=== PATIENT | male | born 1970 | race Caucasian/White ===

== ENCOUNTER 2025-05-02 10:48 | Emergency (ER) | payer OTHER, SELFPAY ==
--- NOTE | 2025-05-02 10:50 | ED.ABDPAIN ---
HPI - Abdominal Pain General Stated Complaint: Abdominal Pain Time Seen by Provider: 05/02/25 11:12 Source: patient and RN notes reviewed Mode of arrival: ambulatory Limitations: no limitations History of Present Illness HPI narrative: 55-year-old male presents with concern for left lower quadrant abdominal pain. He reports he has had pain for 1 week mainly in the left lower quadrant that has been getting worse over the past week. Reports yesterday when he was mowing the grass the bouncing of the lawn more caused his abdomen to hurt. He reports he had loose stool, then was constipated for a day and then had loose stool again after taking Dulcolax. He denies nausea or vomiting. He reports he had a fever yesterday. MD elicited complaint: abdominal pain Related Data Allergies Allergy/AdvReac Type Severity Reaction Status Date / Time Penicillins Allergy Severe HIVES Verified 05/02/25 10:57 Review of Systems Review of Systems: CONSTITUTIONAL: Denies malaise, chills, sweats. Reports tactile fever. ENT: Denies rhinorrhea, congestion, sinus pain, otalgia or sore throat. CARDIOVASCULAR: Denies chest pain, palpitations, or edema. RESPIRATORY: Denies cough or dyspnea. GASTROINTESTINAL: Reports left lower quadrant abdominal pain, loose stools. Denies nausea, vomiting, bloody, or mucous stools. GENITOURINARY: Denies dysuria or hematuria. MUSCULOSKELETAL: Denies myalgia. NEUROLOGIC: Denies headache. All systems reviewed & are unremarkable except as noted in HPI and below PMFSH Surgical History Surgical History History of shoulder surgery (2008) Right rotator cuff repair Family History Family History (Updated 03/10/24 @ 16:00 by Georgette Willson APRN) Mother Kidney disease Father Heart disease Sibling Pancreatic cancer Social History Social History Smoking status: Never smoker Alcohol intake: never Substance use: never Comments At time of signature, agree with nursing past medical, surgical, social and family history. There is no relevant family history pertinent to the presenting complaint Exam Narrative: GENERAL: Well-appearing, well-nourished, and in no acute distress. HEAD: Normocephalic, atraumatic. EYES: PERRLA, conjunctivae clear, and EOMI. ENT: Nares clear. Mucous membranes moist. NECK: Supple. No lymphadenopathy CHEST: Speaks in full sentences. No respiratory distress. HEART: Regular rate and rhythm. ABDOMEN: Soft, flat, nondistended. Left lower quadrant tenderness. No guarding, rebound tenderness, or rigidity. No pulsatile masses. Bowel sounds hypoactive in all four quadrants. No organomegaly. Negative Alfonso?s sign. No periumbilical tenderness. No Supra public tenderness or distension. SKIN: Warm, dry, no rash. NEURO: Alert and oriented x3. PSYCH: Normal mood and affect Course Course Emergency Course: Patient is aware of, understands and agrees to be transferred to the emergency department. Patient agrees to proceed directly to the emergency department. Portions of this record may have been created with voice recognition software Level of Care: Express Care Visit Vital Signs Vital signs: Reviewed. Transfer Transfered to: [place] Transportation: Other (Private vehicle) Transfer rationale: Abdominal pain Accepting physician: tuyet MDM - Abdominal Pain [facility] Narrative Medical decision making narrative: Patient is nontoxic appearing and in no acute distress Critical Care Time Critical Care Time Critical Care Time: No Discharge Plan Discharge Clinical Impression: Abdominal pain Patient Disposition: Acute Care Hospital Condition: Stable Patient Language: Ethiopian Prescriptions: No Action atorvastatin 40 mg tablet See Rx Instructions .ROUTE .COMPLEX Qty: 30 3RF Dose Instruction: Take 1 tablet by mouth once daily Rx Instructions: Take 1 tablet by mouth once daily Follow-up/Referrals: Preet Joyce MD [Primary Care Provider] - Stand Alone Forms: Work/School Release IP Time of Disposition: 11:17
[2025-05-02 10:56] VITALS: BP 149/90; PULSE 80; RESP 16; TEMP 36.6; O2SAT 98
== END 2025-05-02 11:23 | disposition short-term general hospital (02) ==
PROVIDERS: Emergency Provider Nurse Practitioner; PCP Family Medicine Adolescent Medicine
DX: R10.32 Left lower quadrant pain (principal)
CPT/HCPCS: 99212; G0463

== ENCOUNTER 2025-05-02 11:39 | Emergency (ER) | payer OTHER, SELFPAY ==
--- NOTE | ~2025-05-02 | CT_ITS ---
EXAMINATION: CT abdomen pelvis w con DATE: 05/02/2025 13:03 INDICATION: Left lower quadrant abdominal pain TECHNIQUE: Computed tomography (CT) of the abdomen and pelvis was performed with 100 mL Omnipaque-350 intravenous contrast. Automated exposure control and iterative reconstruction technique were employe d. The dose-length product was 546.53 mGy-cm. COMPARISON: None FINDINGS: Mild dependent atelectasis in the bilateral lower lobes. Heart size is normal. No pericardial or pleu ral effusion. Small amount prescribed coronary artery calcific lesion. Focal hepatic steatosis along the gallbladder fossa. Gallbladder, spleen, pancreas, right kidney and bilateral adrenal glands are n ormal. Small parapelvic cysts at the left renal hilum. Bladder is normal. Mild scattered diverticulos is with inflammatory stranding surrounding a diverticulum at the distal descending colon consistent w ith diverticulitis. No abscess, extraluminal gas or free intraperitoneal fluid. Changes of the bowels are unremarkable including a normal retrocecal appendix. No pathologically enlarged abdominal or pel steve lymphadenopathy. Mild thoracic spondylosis with chronic appearing anterior wedging, mild at T8, m inimal at T7 and T9. IMPRESSION: 1. Uncomplicated diverticulitis of the distal descending colon. Reviewed, dictated and finalized at location A.
[2025-05-02 11:40] VITALS: BP 145/80; PULSE 73; RESP 18; TEMP 36.6; O2SAT 97
--- OUTSIDE RECORDS SUMMARY | 2025-05-02 11:42 | XMS_ITS | Clinical Summary ---
Author Organization [address] lt Address [address] [place] [address] Care Team Providers Care Retail Salesperson Name Role Phone Preet Joyce MD Primary Care Prov ider Allergies Active Allergy Reactions Criticality Noted Date Comments Penicillins Hives Medium 01/25/2022 Medications atorvastatin (LIPITOR) 40 mg tablet Take 40 mg by mouth daily 2 Active albuterol HFA (ProAir HFA) 90 mcg/actuation inhalerIndicati ons:Wheezing Inhale 2 puffs every 4 (four) hours as needed for wheezing or shortness of breath 8.5 g 2 Active Active Problems No known active problems Surgical History Surgery Date Site/Laterality Comments ROTATOR CUFF REPAIR 10/05/2008 - 10/04/2009 Right Medical History Medical History Date Comments Hyperlipidemia Family History Medical History Relation Name Comments No Known Problems Father No Known Problems Mother Relation Name Status Comments Father Mother Social History Tobacco Use Types Packs/Day Years Used Date Smoking Tobacco: Never Smokeless Tobacco: Never Personal Safety Answer Date Recorded Getting School Help Needed Not on file 12/19 Sex and Gender Information Value Date Recorded Sex Assigned at Not on file 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 Gender Identity Not on file Sexual Orientation Not on file Obstetrics History Last Filed Vital Signs Vital Sign Reading Time Taken Comments Blood Pressure 124/76 01/25/2022 2:19 PM CDT Pulse 59 01/25/2022 2:19 PM CDT Temperature 37.5 C (99.5 F) 01/25/2022 2:19 PM CDT Respiratory Rate 18 01/25/2022 2:19 PM CDT Oxygen Saturation 98% 01/25/2022 2:19 PM CDT Inhaled Oxygen Concentration - - Weight 90.9 kg (200 lb 6.4 oz) 01/25/2022 2:19 P M CDT Height 170.2 cm (5' 7) 01/25/2022 2:19 PM CDT Body Mass Index 31.39 01/25/2022 2:19 PM CDT Plan of Treatment Health Maintenance Due Date Last Done Comments Colon Cancer Screening-Colonoscopy 1968 Depression Screening 1968 Hepatitis C Screening 1968 Prostate Cancer Screening-PSA 1968 DTaP/Tdap/Td Vaccine (1 - Tdap) 1979 Hepatitis B Screening 1986 Regular Well Visit/Exam 18-64 1986 Zoster Vaccine (1 of 2) 2018 Covid-19 Vaccine (3 - 2023-2 5 season) 2024 08/02/2021, 07/12/2021 Influenza Vaccine (#1) 2025 Pneumococcal vaccine <65 Aged Out No longer eligible based on patient's age to complete this topic Insurance [employer] OPEN ACCESS [facility] [id number] Care Teams Retail Salesperson Relationship Specialty Start Date End Date Preet Joyce MD [address] [place] [address] PCP - General 10/02/16
--- OUTSIDE RECORDS SUMMARY | 2025-05-02 11:42 | XMS_ITS | Referral Summary ---
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
[2025-05-02 11:46] VITALS: BP 127/79; PULSE 68; RESP 16; TEMP 36.8; O2SAT 96
[2025-05-02 12:13] LABS: Hematocrit 46.1 % (42.0-52.0); Hemoglobin 15.4 g/dL (14.0-18.0); Immature Granulocyte Percent A 0.3 % (0-0.5); Lymphocytes Absolute Auto 1.52 K/mm3 (0.9-3.2); Mean Corpuscular HGB Conc 33.4 g/dl (32-36); Mean Corpuscular Hemoglobin 31.0 pg (26-34); Mean Corpuscular Volume 92.8 fl (80-100); Nucleated Red Blood Cells Absolute Auto 0.000 K/mm3 (0.0-0.012); Nucleated Red Blood Cells Perc 0.0 % (0.0-0.2); Platelet Count Result 229 k/mm3 (150-375); Red Blood Count 4.97 M/mm3 (4.6-6.20); White Blood Count 7.2 K/mm3 (4.5-10.0)
[2025-05-02 12:19] LABS: Add Urine Microscopic? YES; Appearance Urine Clear (Clear); Glucose Urine UA Negative (Negative); Leukocyte Esterase Ur Negative LEU/UL (Negative); Nitrate Urine Negative (Negative); Non Pathogenic Casts 0-2; Specific Grav Ur 1.021 (1.001-1.035)
--- OUTSIDE RECORDS SUMMARY | 2025-05-02 12:33 | XMS_ITS | Clinical Summary ---
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
--- OUTSIDE RECORDS SUMMARY | 2025-05-02 12:33 | XMS_ITS | Referral Summary ---
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
[2025-05-02 12:40] LABS: Alanine Aminotransferase 14 U/L (6-50); Albumin Level 4.3 g/dL (3.5-5.1); Alkaline Phosphatase 65 U/L (38-126); Anion Gap 5 mmol/L (4-12); Aspartate Amino Transferase 25 U/L (17-59); Bilirubin,Total 1.1 mg/dL (0.2-1.3); Blood Urea Nitrogen 16 mg/dL (9-20); Calcium 9.2 mg/dL (8.4-10.2); Carbon Dioxide 29 mmol/L (22-30); Chloride 103 mmol/L (98-107); Estimated CRCL calculation 58 ml/min; Estimated Glomerular Filt Rate 55; Glucose 101 mg/dL (65-110); Lipase 99 U/L (23-300); Potassium 4.4 mmol/L (3.4-5.0); Sodium 137 mmol/L (137-145); Total Protein 7.8 g/dL (6.3-8.2)
[2025-05-02 13:11] VITALS: BP 145/99; PULSE 70; RESP 16; O2SAT 98
--- NOTE | 2025-05-02 13:32 | ED.GENADULT ---
HPI - General Adult General Chief complaint: Abdominal Pain Stated complaint: abd pain Time Seen by Provider: 05/02/25 12:12 Source: patient Mode of arrival: ambulatory Limitations: no limitations History of Present Illness HPI narrative: 55-year-old with a history of hyperlipidemia here with a complaint of left lower abdominal pain with started yesterday. He states for the past few days his bowel movement is slightly different. Denies any blood in the stool. No history of fever or chills. No previous history of diverticulosis or diverticulitis. Denies urinary symptoms. Return Onset (ago): day(s) (1) Location: abdomen Radiation: non-radiation Severity: mild Quality: aching Pain Consistency: constant Relieving factors: none Exacerbating factors: none Associated symptoms: denies other symptoms Related Data Allergies Allergy/AdvReac Type Severity Reaction Status Date / Time Penicillins Allergy Severe HIVES Verified 05/02/25 11:46 Review of Systems Review of Systems: All systems reviewed & are unremarkable except as noted in HPI and below Constitutional: Constitutional: Reports no additional constitutional complaints Eyes: Eyes: Reports no additional eye complaints ENT: Reports system reviewed and no additional complaints, except as documented Cardiovascular: Cardiovascular: Reports no additional cardiovascular complaints Respiratory: Respiratory: Reports no additional respiratory complaints Gastrointestinal: Gastrointestinal: Reports as per HPI Musculoskeletal: Musculoskeletal: Reports no additional musculoskeletal complaints Neurologic: Reports system reviewed and no additional complaints, except as documented Psychiatric: Psychiatric: Reports no additional psychiatric complaints Endocrine: Endocrine: Reports no additional endocrine complaints PMFSH Surgical History Surgical History History of shoulder surgery (2008) Right rotator cuff repair Family History Family History Mother Kidney disease Father Heart disease Sibling Pancreatic cancer Social History Social History Smoking status: Never smoker Alcohol intake: never Substance use: never Exam Narrative: GENERAL: Well-appearing, well-nourished, and in no acute distress. HEAD: Normocephalic, atraumatic. EYES: PERRLA and EOMI. ENT: Nares clear, no rhinorrhea or epistaxis. Mucous membranes moist. NECK: Supple. CHEST: Clear to auscultation. No respiratory distress. HEART: Regular rate and rhythm. No murmur heard. Normal peripheral pulses. ABDOMEN: Soft, mild tenderness in the LLQ , nondistended, normal active bowel sounds. EXTREMITIES: Normal range of motion. No edema. SKIN: Warm, dry, no rash. NEURO: No focal deficits. Alert and oriented x3. PSYCH: Normal mood and affect. Course Course Emergency Course: Informed patient about his lab work, CT findings. Advised to take antibiotic as prescribed ER liquid diet for few days advance as tolerated. Also recommended him to follow with his primary doctor Vital Signs Vital signs: Vital Signs Temperature 36.6 C 05/02/25 11:40 Pulse Rate 73 05/02/25 11:40 Respiratory Rate 18 05/02/25 11:40 Blood Pressure 145/80 H 05/02/25 11:40 Pulse Oximetry 97 05/02/25 11:40 Oxygen Delivery Room Air 05/02/25 11:40 Temperature 36.8 C 05/02/25 11:46 Pulse Rate 70 05/02/25 13:11 Respiratory Rate 16 05/02/25 13:11 Blood Pressure 145/99 H 05/02/25 13:11 Pulse Oximetry 98 05/02/25 13:11 Oxygen Delivery Room Air 05/02/25 11:46 Medical Decision Making Vital Signs Vital Signs: Vital Signs Temperature 36.6 C 05/02/25 11:40 Pulse Rate 73 05/02/25 11:40 Respiratory Rate 18 05/02/25 11:40 Blood Pressure 145/80 H 05/02/25 11:40 Pulse Oximetry 97 05/02/25 11:40 Oxygen Delivery Room Air 05/02/25 11:40 Temperature 36.8 C 05/02/25 11:46 Pulse Rate 70 05/02/25 13:11 Respiratory Rate 16 05/02/25 13:11 Blood Pressure 145/99 H 05/02/25 13:11 Pulse Oximetry 98 05/02/25 13:11 Oxygen Delivery Room Air 05/02/25 11:46 Lab Data Lab results reviewed: Yes I reviewed the patient's lab results. 05/02/25 12:05 05/02/25 12:06 Labs: Lab Results 05/02/25 05/02/25 05/02/25 Range/Units 12:04 12:05 12:06 WBC 7.2 (4.5-10.0) K/mm3 RBC 4.97 (4.6-6.20) M/mm3 Hgb 15.4 (14.0-18.0) g/dL Hct 46.1 (42.0-52.0) % MCV 92.8 (80-100) fl MCH 31.0 (26-34) pg MCHC 33.4 (32-36) g/dl RDW 12.5 (11.5-14.5) % Plt Count 229 (150-375) k/mm3 MPV 9.2 (7.4-10.4) fl Immature Gran % (Auto) 0.3 (0-0.5) % Neut % (Auto) 66.6 (45.5-73.1) % Lymph % (Auto) 21.1 (18.3-44.2) % [place] % (Auto) 10.2 H (2.6-8.5) % Eos % (Auto) 1.1 (0-4.4) % Baso % (Auto) 0.7 (0.2-1.2) % Lymph # (Auto) 1.52 (0.9-3.2) K/mm3 [place] # (Auto) 0.7 H (0.1-0.6) K/mm3 Eos # (Auto) 0.1 (0-0.3) K/mm3 Baso # (Auto) 0.1 (0.0-0.1) K/mm3 Abs Immat Gran (auto) 0.02 (0.00-0.031) K/mm3 Absolute Neuts (auto) 4.8 (1.3-6.7) K/mm3 Absolute Nucleated RBC 0.000 (0.0-0.012) K/mm3 Nucleated RBC % 0.0 (0.0-0.2) % Sodium 137 (137-145) mmol/L Potassium 4.4 (3.4-5.0) mmol/L Chloride 103 (98-107) mmol/L Carbon Dioxide 29 (22-30) mmol/L Anion Gap 5 (4-12) mmol/L BUN 16 (9-20) mg/dL Creatinine 1.33 H (0.7-1.3) mg/dL Estim Creat Clear Calc 58 ml/min Estimated GFR 55 L (59 - ) Glucose 101 (65-110) mg/dL Calcium 9.2 (8.4-10.2) mg/dL Total Bilirubin 1.1 (0.2-1.3) mg/dL AST 25 (17-59) U/L ALT 14 (6-50) U/L Alkaline Phosphatase 65 (38-126) U/L Total Protein 7.8 (6.3-8.2) g/dL Albumin 4.3 (3.5-5.1) g/dL Lipase 99 (23-300) U/L Urine Color Yellow (Yellow) Urine Appearance Clear (Clear) Urine pH 5.5 (5.0-9.0) Ur Specific [place] 1.021 (1.001-1.035) Urine Protein 2+ H (Negative) mg/dL Urine Glucose (UA) Negative (Negative) mg/dL Urine Ketones Trace H (Negative) mg/dL Ur Blood (Man) 3+ H (Negative) Urine Nitrate Negative (Negative) Urine Bilirubin Negative (Negative) Urine Urobilinogen 1.0 (<2.0) mg/dL Leukocyte Esterase Rfl Negative (Negative) STEVE/UL Urine RBC 51-100 H (0-2) /hpf Urine WBC 0-5 (0-3) /hpf Ur Squamous Epith Cells None seen (Few) /hpf Urine Bacteria None seen /hpf Urine Casts 0-2 Imaging Data Radiologist's impression: ITS Impressions Abdomen/Pelvis CT 05/02/25 13:10 IMPRESSION: 1. Uncomplicated diverticulitis of the distal descending colon. Discharge Plan Discharge Clinical Impression: Diverticulitis large intestine Qualifiers: Diverticulitis bleeding: without bleeding Diverticulitis complication: without perforation or abscess Qualified Code(s): K57.32 - Diverticulitis of large intestine without perforation or abscess without bleeding Patient Disposition: Home Condition: Stable Instructions: Diverticulitis (DC) Additional Instructions: Be on liquid diet for few days. Return to the ER to have high fever or increased abdominal pain. Take antibiotic as prescribed. Recommended to get a colonoscopy and a later date Patient Language: Panamanian Prescriptions: New ciprofloxacin HCl 500 mg tablet 500 mg PO Q12H Qty: 14 0RF metronidazole 500 mg tablet 500 mg PO Q8H 7 Days Qty: 21 0RF No Action atorvastatin 40 mg tablet See Rx Instructions .ROUTE .COMPLEX Qty: 30 3RF Dose Instruction: Take 1 tablet by mouth once daily Rx Instructions: Take 1 tablet by mouth once daily Follow-up/Referrals: Preet Joyce MD [Primary Care Provider] - Time of Disposition: 13:38
== END 2025-05-02 13:57 | disposition home or self-care (01) ==
PROVIDERS: Emergency Medicine; Emergency Provider Family Medicine; PCP Family Medicine Adolescent Medicine
DX: K57.32 Diverticulitis of large intestine without perforation or abscess without bleeding (principal); E78.5 Hyperlipidemia, unspecified
CPT/HCPCS: 36415; 74177; 80053; 81001; 83690; 85025; 99284; Q9967

== ENCOUNTER 2025-08-21 02:03 | Day surgery (SDC) | payer OTHER, SELFPAY ==
[2025-08-08 08:35] VITALS: BMI 30.5
--- OUTSIDE RECORDS SUMMARY | 2025-08-21 02:11 | XMS_ITS | Clinical Summary ---
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
[2025-08-21 09:19] VITALS: BP 149/94; PULSE 61; RESP 16; TEMP 36.2; O2SAT 99
[2025-08-21] MEDS: LACTATED RINGERS 1,000 ML 150 ML IV CONT (09:28)
--- NOTE | 2025-08-21 10:03 | P.HP_ITS ---
H&P: HPI History of Present Illness Date/Time: 08/21/25 10:03 Chief Complaint: screening for colorectal cancer Narrative: this is a 55-year-old man who presents for colonoscopy. He has never had a colonoscopy before. He denies any hematochezia or melena. He denies family history of colon cancer. Review of Systems Review of Systems: All systems reviewed & are unremarkable except as noted in HPI and below Constitutional: Constitutional: Denies chills, Denies fever(s), Denies headache(s) and Denies weight loss Eyes: Eyes: Denies change in vision ENT: Denies dizziness, Denies headache(s), Denies neck mass and Denies throat swelling Cardiovascular: Cardiovascular: Denies chest pain, Denies lightheadedness and Denies dyspnea Respiratory: Respiratory: Denies cough, Denies dyspnea and Denies wheezing Gastrointestinal: Gastrointestinal: Denies abdominal pain, Denies change in bowel habits, Denies nausea and Denies vomiting Genitourinary: Genitourinary: Denies hematuria and Denies dysuria Musculoskeletal: Musculoskeletal: Reports as per HPI Integumentary/Breasts: Skin/Breast: Reports as per HPI Neurologic: Denies dizziness and Denies headache(s) Allergic/Immunologic: Allergic/Immunologic: Denies throat swelling and Denies wheezing REPLACED BY [facility] Past Medical History Medical History (Updated 08/21/25 @ 10:04 by Arturo Lopez DO) History of diverticulitis of colon (04/2025) Surgical History Surgical History History of shoulder surgery (2008) Right rotator cuff repair Family History Family History Mother Kidney disease Father Heart disease Sibling Pancreatic cancer Social History Social History Smoking status: Never smoker Alcohol intake: never Substance use: never Substance use type: does not use Meds Home Medications and Allergies Home Medications ?Medication ?Instructions ?Recorded ?Confirmed ?Type No Home Medications 08/08/25 08/21/25 H istory Allergies Allergy/AdvReac Type Severity Reaction Status Date / Time Penicillins Allergy Severe HIVES Verified 08/21/25 09:17 Vital Signs Vital Signs - 24 hr 08/21/25 09:19 Temperature 97.1 F L Pulse Rate 61 Respiratory Rate 16 Blood Pressure 149/94 H Pulse Oximetry 99 Oxygen Delivery Room Air Exam Const: General: no acute distress and alert Orientation/consciousness: patient oriented x3 HENMT: Head: normocephalic and atraumatic Ears: hearing grossly normal bi laterally Face/Nose/Sinus: Normal nares present Mouth: Yes Normal oral and palatal mucosa present Eyes: Periorbital: periorbital findings normal Sclera: sclerae normal EOM: EOMs intact bilaterally Neck: Neck: normal visual inspection, no lymphadenopathy and trachea midline Chest: Chest palpation & inspection: normal inspection of the chest Resp: Effort & Inspection: normal respiratory effort Auscultation: clear to auscultation bilaterally Cardio: Jugular venous distension: no JVD Rate: regular rate Rhythm: regular rhythm Heart sounds: S1 normal heart sound present and S2 normal heart sound present Peripheral pulses: Peripheral pulses 2+ throughout GI: Inspection: normal to inspection GI Palp: Yes Soft to palpation, No Tenderness to palpation present (GI), No Guarding due to palpation present (GI) and No Rebound tenderness present Percussion: Yes normal to percussion Auscultation: normal bowel sounds : General: Yes no CVA tenderness Back/Spine/Pelvis: Back: no CVA tenderness Neuro: General: patient oriented x3, no focal motor deficits and CN's II-XI intact bilaterally Cognition (Neuro): normal cognition Speech: normal speech Motor exam (neuro): 5/5 motor strength present throughout Extrem: General: capillary refill normal and no clubbing, cyanosis or edema Assessment and Plan Assessment and plan (1) Screening for colorectal cancer: Code(s): Z12.11 - Encounter for screening for malignant neoplasm of colon; Z12.12 - Encounter for screening for malignant neoplasm of rectum Status: Acute Assessment and Plan: I have recommended colonoscopy. I have discussed the procedure, risks, benefits, and alternatives. Questions were answered. Patient is agreeable to proceed.
--- NOTE | 2025-08-21 10:15 | WPDANESEPPF ---
Anes - Initial Pre Proc Eval Procedure: Operation Date: 08/21/25 10:30 Proposed Procedures p Screening Colonoscopy - Arturo Lopez DO Date/Time: 08/21/25 10:15 Surgeon: Arturo Lopez DO Pre Op Diagnosis: Neoplasm screening Patient Data Age: 55 Gender: M Height: 1.7 m Weight: 89.2 kg Last Vital Signs Temp 36.2 C L 08/21/25 09:19 Pulse 61 08/21/25 09:19 Resp 16 08/21/25 09:19 BP 149/94 H 08/21/25 09:19 Pulse Ox 99 08/21/25 09:19 O2 Del Method Room Air 08/21/25 09:19 Allergies Allergy/AdvReac Type Severity Reaction Status Date / Time Penicillins Allergy Severe HIVES Verified 08/21/25 09:17 Home Medications ?Medication ?Instructions ?Recorded ?Confirmed ?Type No Home Medications 08/08/25 08/21/25 History Patient hx anesthesia problems: none Family hx anesthesia problems: none Results Review: All pre-operative results and documents have been reviewed as part of the pre-operative evaluation. [facility] Past Medical History Medical History (Updated 08/21/25 @ 10:04 by Arturo Lopez DO) History of diverticulitis of colon (04/2025) Surgical History Surgical History History of shoulder surgery (2008) Right rotator cuff repair Family History Family History Mother Kidney disease Father Heart disease Sibling Pancreatic cancer Social History Social History Smoking status: Never smoker Alcohol intake: never Substance use: never Substance use type: does not use Anes - Eval Final PreProcedure Day of Procedure 08/21/25 10:15 Patient weight: obese Heart: regular rate and rhythm Lungs: clear to auscultation Airway: Mallampati scale class II Neurological: alert and oriented Last oral intake: >/= 8 hours ASA classification: II Emergent: no Anesthetic plan: proceed Anesthesia type and monitoring: general GIVS and standard monitoring Results Review: All pre-operative results and documents have been reviewed as part of the pre-operative evaluation. Informed Consent: The patient's anesthetic plan and its attendant risks and benefits were discussed with the patient/family/POA. Questions were solicited and answers provided to the satisfaction of the patient/family/POA.
[2025-08-21 10:26] VITALS: BP 111/72; PULSE 66; RESP 16; O2SAT 95
[2025-08-21 10:36] VITALS: BP 108/73; PULSE 62; RESP 16; O2SAT 94
[2025-08-21 10:46] VITALS: BP 116/62; PULSE 58; RESP 16; O2SAT 100
== END 2025-08-21 10:58 | disposition home or self-care (01) ==
PROVIDERS: PCP Family Medicine Adolescent Medicine; Visit Provider Surgery
PROC: 0DJD8ZZ Inspection of Lower Intestinal Tract, Via Natural or Artificial Opening Endoscopic (ICD-10-PCS; CPT 45378; principal; 2025-08-21 10:30)
DX: Z12.11 Encounter for screening for malignant neoplasm of colon (principal); K57.30 Diverticulosis of large intestine without perforation or abscess without bleeding
CPT/HCPCS: 45378; J2704; J7120